=== PATIENT | female | born 1960 | race Caucasian/White ===

== ENCOUNTER 2022-07-30 12:30 | Inpatient (IN) | payer BC, OTHER ==
[~2022-07-30] VITALS: Ht 149.9 cm; Wt 65.0 kg
[2022-07-30 14:07] LABS: Basophils # (auto) 0 10 ^3/uL (0-0.2); Basophils % (auto) 0.5 % (0.0-2.0); Eosinophils # (auto) 0.2 10 ^3/uL (0-0.8); Eosinophils % (auto) 2.8 % (0.0-7.0); Hematocrit 42.3 % (36.0-46.0); Hemoglobin 14.8 g/dL (12.2-16.2); Lymphocytes # (auto) 2.1 10 ^3/uL (0.4-5.4); Lymphocytes % (auto) 29.7 % (10.0-50.0); Mean Corpuscular Hemoglobin 30.6 pg (28.0-32.0); Mean Corpuscular Hgb Conc. 34.8 g/dL (32.0-36.0); Monocytes # (auto) 0.6 10 ^3/uL (0-1.3); Monocytes % (auto) 8.5 % (0.0-12.0); Neutrophils # (auto) 4.1 10 ^3/uL (1.6-8.6); Neutrophils % (auto) 58.5 % (37.0-80.0); Nucleated Red Blood Cells % 0.1 %; Red Blood Cells 4.81 10^6/uL (4.0-5.20); Red Cell Distribution Width 13.7 % (11.8-14.3)
[2022-07-30] MEDS ORDERED: SODIUM CHLORIDE 0.9% 1,000 ML IVB ONE (14:30)
[2022-07-30] MEDS ORDERED: PIPERACILLIN-TAZOB 3.375GM 100 ML IV ONE (14:30)
[2022-07-30 14:48] LABS: INR 0.94 (0.9-1.15); Partial Thromboplastin Time 27.5 sec (24.6-33.4)
[2022-07-30 14:51] LABS: Albumin 4.6 g/dL (3.4-5.0); Calcium 9.6 mg/dL (8.5-10.1); Potassium 4.2 mmol/L (3.5-5.1)
[2022-07-30 14:55] LABS: BUN/Creatinine Ratio 29.5 (10.0-20.0); Bilirubin, Total 0.6 mg/dL (0.2-1.0); Total Protein 7.9 g/dL (6.4-8.2)
[2022-07-30] MEDS ORDERED: levoFLOXacin 500MG 100 ML IV ONE (16:00)
[2022-07-30 17:55] LABS: Urine Bacteria NONE SEEN /hpf (None Seen); Urine Blood Negative /uL (Negative); Urine Hyaline Cast FEW /lpf (0 - 2); Urine Mucus MODERATE (None Seen); Urine Specific Gravity 1.036 (1.001-1.035); Urine WBC 9 /hpf (0 - 5)
[2022-07-30] MEDS: SODIUM CHLORIDE 0.9% 1,000 ML IV SCH (20:57)
[2022-07-31] MEDS: metroNIDAZOLE 500MG/100ML 100 ML IV SCH ×4 (00:19→13:49)
[2022-07-31 05:21] LABS: Basophils # (auto) 0 10 ^3/uL (0-0.2); Basophils % (auto) 0.6 % (0.0-2.0); Eosinophils # (auto) 0.1 10 ^3/uL (0-0.8); Eosinophils % (auto) 2.3 % (0.0-7.0); Hematocrit 42.1 % (36.0-46.0); Hemoglobin 14.2 g/dL (12.2-16.2); Lymphocytes # (auto) 1.8 10 ^3/uL (0.4-5.4); Lymphocytes % (auto) 31.7 % (10.0-50.0); Mean Corpuscular Hemoglobin 29.9 pg (28.0-32.0); Mean Corpuscular Hgb Conc. 33.7 g/dL (32.0-36.0); Mean Corpuscular Volume 88.9 fL (80.0-100.0); Monocytes # (auto) 0.5 10 ^3/uL (0-1.3); Monocytes % (auto) 9.5 % (0.0-12.0); Neutrophils # (auto) 3.1 10 ^3/uL (1.6-8.6); Neutrophils % (auto) 55.9 % (37.0-80.0); Nucleated Red Blood Cells % 0.1 %; Red Blood Cells 4.74 10^6/uL (4.0-5.20); Red Cell Distribution Width 13.3 % (11.8-14.3); White Blood Cell 5.5 10^3/uL (4.4-10.8)
[2022-07-31 05:33] LABS: Potassium 3.8 mmol/L (3.5-5.1)
[2022-07-31 05:37] LABS: BUN/Creatinine Ratio 21.7 (10.0-20.0); Calcium 8.6 mg/dL (8.5-10.1)
[2022-07-31] MEDS: LIDOCAINE W/ EPINEPHRINE 1% 20ML VIAL ONE ×2 (09:13→10:59)
[2022-07-31] MEDS: BUPIVACAINE 0.25% INJ 50ML VIAL ONE ×2 (09:13→10:58)
[2022-07-31] MEDS ORDERED: levoFLOXacin 500MG 100 ML IV ONE (09:26)
[2022-07-31] MEDS ORDERED: fentaNYL CITRATE 100 MCG/2 ML VL ONE (09:50)
[2022-07-31] MEDS ORDERED: MEPERIDINE HCL (50 MG/ML) 1 ML VIAL ONE (09:51)
[2022-07-31] MEDS ORDERED: MIDAZOLAM HCL 2MG/2ML 2ml VIAL (1mg/ml) ONE (09:51)
[2022-07-31] MEDS ORDERED: SUCCINYLCHOLINE CHLORIDE 20 MG/ML 10ML VIAL IV ONE (09:52)
[2022-07-31] MEDS ORDERED: MORPHINE SULFATE 4 MG/ML SYR/VIAL IV PRN (10:30)
[2022-07-31] MEDS ORDERED: MIDAZOLAM HCL 2MG/2ML 2ml VIAL (1mg/ml) IV PRN (10:30)
[2022-07-31] MEDS ORDERED: ONDANSETRON HCL 4 MG/2 ML VIAL IV PRN (10:30)
[2022-07-31] MEDS ORDERED: HYDROmorphone HCL 2 MG/ML VL/or syr IV PRN (10:30)
[2022-07-31] MEDS ORDERED: ePHEDrine SULFATE 50 MG/ML AMP IV PRN (10:30)
[2022-07-31] MEDS ORDERED: LABETALOL HCL 5 MG/ML 4ML SYRINGE IV PRN (10:30)
[2022-07-31] MEDS ORDERED: SUGAMMADEX 200mg/2ml Vial (100MG/ML) IV ONE (10:33)
[2022-07-31] MEDS ORDERED: DexAMETHasone SOD PHOS 10MG/1ML VIAL INJ ONE (11:23)
[2022-07-31] MEDS ORDERED: PROPOFOL 10 MG/ML 20 ML IV ONE (11:23)
[2022-07-31] MEDS ORDERED: ONDANSETRON HCL 4 MG/2 ML VIAL IV ONE (12:30)
[2022-07-31 14:15] VITALS: BP 125/72
[2022-07-31] MEDS: levoFLOXacin 500MG 100 ML IV SCH (14:26)
[2022-07-31] MEDS: SODIUM CHLORIDE 0.9% 1,000 ML IV SCH ×2 (14:27→21:45)
[2022-07-31 16:39] VITALS: BP 124/71
[2022-07-31] MEDS: PANTOPRAZOLE 40 MG/10 ML VIAL INJ IV SCH (17:28)
[2022-07-31] MEDS ORDERED: BUPR150T8 PO (18:00)
[2022-07-31] MEDS: ONDANSETRON HCL 4 MG/2 ML VIAL IV PRN (18:25)
[2022-07-31 22:00] VITALS: BP 141/82
[2022-08-01] MEDS: MORPHINE SULFATE INJ 2 MG/ml SYRG IV PRN ×2 (02:02→22:26)
[2022-08-01] MEDS: ONDANSETRON HCL 4 MG/2 ML VIAL IV PRN (02:16)
[2022-08-01 05:08] VITALS: BP 135/71
[2022-08-01] MEDS: metroNIDAZOLE 500MG/100ML 100 ML IV SCH ×3 (05:47→22:26)
[2022-08-01 08:30] VITALS: BP 147/79
[2022-08-01] MEDS ORDERED: PROMETHAZINE HCL 25 MG/ML 1ML IV PRN (09:00)
[2022-08-01] MEDS: levoFLOXacin 500MG 100 ML IV SCH (10:14)
[2022-08-01] MEDS: PANTOPRAZOLE 40 MG/10 ML VIAL INJ IV SCH (10:15)
[2022-08-01] MEDS: SODIUM CHLORIDE 0.9% 1,000 ML IV SCH ×2 (10:26→17:11)
[2022-08-01 12:30] VITALS: BP 122/65
[2022-08-01 17:29] VITALS: BP 116/65
[2022-08-01 22:00] VITALS: BP 133/69
[2022-08-02 05:00] VITALS: BP 123/63
[2022-08-02] MEDS: metroNIDAZOLE 500MG/100ML 100 ML IV SCH (06:24)
[2022-08-02] MEDS ORDERED: LEVO500T31 PO (07:57)
[2022-08-02] MEDS ORDERED: METR500T PO (07:57)
[2022-08-02 08:44] VITALS: BP 130/64
[2022-08-02 09:12] VITALS: BP 130/64
== END 2022-08-02 11:03 | disposition home or self-care (01) | DRG 342 ==
LOC: ER 12:30 → OVERFLOW 07-31 00:45 → CENTRAL 07-31 14:13
PROVIDERS: ADMIT Nurse Practitioner; ATTEND Family Medicine
PROC: 0DTJ4ZZ Resection of Appendix, Percutaneous Endoscopic Approach (ICD-10-PCS; principal; 2022-07-31 10:13)
DX: K35.80 Unspecified acute appendicitis (principal); N39.0 Urinary tract infection, site not specified; E86.0 Dehydration; Z88.0 Allergy status to penicillin; Z90.710 Acquired absence of both cervix and uterus; Z80.9 Family history of malignant neoplasm, unspecified
CPT/HCPCS: 36415; 71045; 74176; 80048; 80053; 81001; 83690; 85025; 85610; 85730; 86850; 86900; 86901; 96365; C9113; G0378; J0330; J1100; J1956; J2250; J2405; J2704; J3490